=== PATIENT | female | born 1930 ===

== ENCOUNTER 2017-06-09 08:47 | Outpatient (CLI) | payer OTHER ==
[~2017-06-09 08:47] MED LIST: BENTYL10 MG/ML; CADUET 5 MG/101 TAB PO; CATAFLAM50 MG PO; DIOVAN160 M1; DIOVAN320 MG PO; LANTUS100 U/ML SQ; LEXAPRO20 MG; NABUMETONE750 MG PO; NOVOLOG100 U/ML SQ; PLAVIX75 MG; PLAVIX75 MG PO; PREVACID30 MG; PROTONIX40 MG PO; ZYRTEC10 MG; [UNRECOGNIZED DRUG - OTHER]
== END 2017-06-09 08:56 | disposition home or self-care (01) ==
LOC: LAB 08:47
DX: D50.0 Iron deficiency anemia secondary to blood loss (chronic) (principal); D51.3 Other dietary vitamin B12 deficiency anemia; D63.1 Anemia in chronic kidney disease; D55.0 Anemia due to glucose-6-phosphate dehydrogenase [G6PD] deficiency; I73.89 Other specified peripheral vascular diseases; I10 Essential (primary) hypertension; E08.65 Diabetes mellitus due to underlying condition with hyperglycemia; E08.21 Diabetes mellitus due to underlying condition with diabetic nephropathy; N18.3 Chronic kidney disease, stage 3 (moderate); D50.8 Other iron deficiency anemias; D51.8 Other vitamin B12 deficiency anemias